=== PATIENT | female | born 1975 | race African-American/Black ===

== ENCOUNTER 2021-06-21 17:38 | Emergency (ER) | payer OTHER ==
[~2021-06-21] VITALS: Ht 170.2 cm; Wt 132.4 kg
[~2021-06-21 17:38] MED LIST: BLOOD PRESSURE MED; HUMULIN 70100 UNIT/1 SC; HUMULIN R100 UNIT/2; INSULIN; JANUVIA100 MG PO; LANTUS 3ML100 UNITS/ SC; LIPITOR20 MG PO; LISINOPRIL10 MG PO; METFORMIN HCL1000 MG PO; NEXIUM40 MG PO
[2021-06-21] MEDS ORDERED: HYDRALAZINE HCL 20 MG/ML VIAL IV STA (18:05)
[2021-06-21 18:10] LABS: BASOPHILS % 0.5 % (0.0-1.0); EOSINOPHILS # (AUTO) 0.2 (0.0-0.4); EOSINOPHILS % 3.2 % (0.0-6.0); HEMOGLOBIN 12.3 g/dL (12.0-16.0); LYMPHOCYTES # (AUTO) 2.1 (1.0-3.2); LYMPHOCYTES % 31.7 % (18.0-39.1); MEAN CORPUSCULAR HGB CONC 34.2 g/dL (31-35); MEAN CORPUSCULAR VOLUME 84.9 fL (81-99); MONOCYTES # (AUTO) 0.6 (0.2-0.8); MONOCYTES % 9.2 % (4.4-11.3); NEUTROPHILS # (AUTO) 3.7 (2.1-6.9); NEUTROPHILS % 55.1 % (38.7-80.0); PLATELET COUNT 255 x10e3/uL (140-360); RED BLOOD COUNT 4.24 x10e6/uL (3.6-5.1)
[2021-06-21 18:22] LABS: INR 0.82; PROTHROMBIN TIME 12.1 seconds (11.9-14.5)
[2021-06-21 18:23] LABS: PARTIAL THROMBOPLASTIN TIME 30.6 seconds (23.8-35.5)
[2021-06-21 18:32] LABS: ALBUMIN 2.6 g/dL (3.5-5.0); ALBUMIN/GLOBULIN RATIO 0.6 (0.8-2.0); ANION GAP 12.5 mmol/L (8-16); CALCIUM 8.3 mg/dL (8.4-10.2); CREATININE, SERUM 2.62 mg/dL (0.57-1.11); POTASSIUM 4.5 mmol/L (3.5-5.1)
[2021-06-21 18:38] LABS: CREATINE KINASE MB 2.4 ng/mL (0-5.0)
[2021-06-21] MEDS ORDERED: ASPIRIN 325 MG TAB PO STA (21:31)
[2021-06-21 22:40] VITALS: BP 146/87
== END 2021-06-21 22:42 | disposition other institution (70) ==
LOC: ER 17:46
DX: I16.0 Hypertensive urgency (principal); I63.9 Cerebral infarction, unspecified; E11.65 Type 2 diabetes mellitus with hyperglycemia; R51.9 Headache, unspecified; I10 Essential (primary) hypertension; E78.5 Hyperlipidemia, unspecified; M54.9 Dorsalgia, unspecified; G89.29 Other chronic pain; E66.01 Morbid (severe) obesity due to excess calories; R94.31 Abnormal electrocardiogram [ECG] [EKG]
CPT/HCPCS: 36415; 70450; 80053; 82550; 82553; 82948; 83880; 84484; 85025; 85610; 85730; 93005; 99284; U0002

== ENCOUNTER 2022-09-02 11:27 | Emergency (ER) | payer OTHER ==
[~2022-09-02] VITALS: Ht 170.2 cm; Wt 132.4 kg
[2022-09-02 11:37] VITALS: O2SAT 99
== END 2022-09-02 12:05 | disposition home or self-care (01) ==
LOC: ER 11:31
DX: Z49.01 Encounter for fitting and adjustment of extracorporeal dialysis catheter (principal); I10 Essential (primary) hypertension; E11.9 Type 2 diabetes mellitus without complications; E78.5 Hyperlipidemia, unspecified; M54.9 Dorsalgia, unspecified; G89.29 Other chronic pain
CPT/HCPCS: 99282